=== PATIENT | male | born 1940 | race Caucasian/White ===

== ENCOUNTER 2016-05-06 12:15 | Inpatient (IN) | payer OTHER ==
[2016-05-06] VITALS (11 sets, daily range): BP systolic 86–128; BP diastolic 48–87
[~2016-05-06] VITALS: Ht 180.3 cm; Wt 96.0 kg
[~2016-05-06 12:15] MED LIST: ADULT LOW DOSE81 M1 PO; ADULT LOW STREN81 M2 PO; ALPRAZOLAM ER1 MG PO; ALPRAZOLAM1 MG PO; AMARYL4 MG PO; ASPIRIN81 M1 PO; BUSPAR10 MG PO; BUSPAR15 MG PO; BUSPIRONE HCL15 MG PO; Buspar PO; COLACE100 MG PO; Citrate Of Magnesia PO; Colace PO; DUONEB 2.5-0.5 M3 ML AEROSOL; FUROSEMIDE20 MG PO; GABAPENTIN100 MG PO; GLIMEPIRIDE4 MG PO; GLUCOPHAGE1000 MG PO; Glucophage PO; K-Dur PO; K-TAB10 MEQ PO; KLONOPIN1 MG PO; KLOR-CON M2020 MEQ PO; LASIX20 MG PO; LASIX40 MG PO; LEVOFLOXACIN750 MG PO; LO-DOSE ASPIRIN81 M1 PO; LOPRESSOR50 MG PO; Lasix PO; Lopressor PO; Lovenox SC; METFORMIN HCL1000 M1 PO; METFORMIN HCL500 MG PO; METOPROLOL SUCC50 MG PO; METOPROLOL TART25 MG PO; METOPROLOL TART50 MG PO; MIRALAX255 GM PO; Maalox, Mylanta PO; Milk Of Magnesia,MOM PO; Miralax, Glycolax PO; NEURONTIN100 MG PO; NIFEDIPINE ER30 M1 PO; NIFEDIPINE ER30 MG PO; NOVOLOG PE100 UNITS/ SC; Neurontin PO; PERCOCET 5/31 TABLET PO; POTASSIUM CHLO10 ME3 PO; POTASSIUM CHLO10 ME4 PO; Percocet 5/325,Endoc PO; Procardia XL,Adalat PO; ROBITUSSIN100 MG/5 M PO; SENNA PLUS TAB1 EACH PO; SEROQUEL50 MG PO; SIMVASTATIN10 MG PO; SIMVASTATIN20 MG PO; Senokot S,Pericolace PO; TAMSULOSIN HCL0.4 MG PO; THERAGRAN1 TABLET PO; TRAZODONE HCL50 MG PO; TYLENOL REGULA325 MG PO; Tylenol Regular Stre PO; VENLAFAXINE H37.5 M2 PO; WELLBUTRIN75 MG PO; XANAX1 MG PO; Xanax PO; ZOCOR20 MG PO; ZYPREXA5 MG PO; Zocor PO
[2016-05-06 12:36] LABS: EOSINOPHIL (%) 1.2 % (0-5); EOSINOPHIL COUNT 0.1 K/uL (0-0.3); HEMATOCRIT 36.4 % (38.0-50.0); IMMATURE GRANULOCYTE (%) 2.3 % (0.0-0.7); IMMATURE GRANULOCYTE COUNT 0.3 K/uL; MCH 29.9 PG (29.0-34.0); MCHC 30.8 G/DL (30.0-36.0); MCV 97.3 FL (86-99); MEAN PLAT.VOLUME 10.3 uM^3 (9.0-12.4); MONOCYTE (%) 4.6 % (3-12); MONOCYTE COUNT 0.5 K/uL (0-0.8); NEUTROPHIL (%) 64.2 % (45-76); PLATELET COUNT 218 K/uL (156-360); RBC DIS.WIDTH-CV 14.8 % (11.8-14.6); RBC DIS.WIDTH-SD 53.3 % (39-53); RED BLOOD COUNT 3.74 M/uL (4.00-5.50); WHITE BLOOD COUNT 10.9 K/uL (4.1-10.2)
[2016-05-06 12:46] LABS: INTER. NORMALIZED RATIO 1.1; PROTHROMBIN TIME 11.4 (9.2-11.2); PTT 32.5 (25-32)
[2016-05-06 12:47] LABS: CHLORIDE 104 mEq/L (99-109); SODIUM 138 mEq/L (136-147)
[2016-05-06 12:49] LABS: GLUCOSE 194 mg/dL (70-99)
[2016-05-06 12:50] LABS: ANION GAP 16 MEQ/L (2-14)
[2016-05-06 12:53] LABS: GFR ESTIMATE (CALCULATED) > 59 mL/min/; UREA NITROGEN (BUN) 23 mg/dL (9-23)
[2016-05-06 12:58] LABS: TROP-I INTERPRETATION NEGATIVE; TROPONIN-I < 0.01 ng/mL (0.0-0.30)
[2016-05-06 13:09] LABS: ADD MIUA? YES; BILIRUBIN NEGATIVE; BLOOD SMALL; COLOR STRAW ((YELLOW)); GLUCOSE (STRIP) 50; KETONES NEGATIVE; LEUKOCYTES SMALL; NITRITE NEGATIVE; PROTEIN (STRIP) 30; SPECIFIC GRAVITY 1.006 (1.000-1.030); UROBILINOGEN 0.2 MG/DL (0.2-1.0)
[2016-05-06 13:17] LABS: BASE EXCESS -0.6 mEq/L (-3 to +3); BICARBONATE 22.8 mEq/L (22-26); CARBOXY HGB 1.3 % (0-5); METHEMOGLOBIN 1.7 % (0-1.5); PCO2 32 mm Hg (35-45); PO2 134 mm Hg (80-100); pH 7.46 (7.35-7.45)
[2016-05-06 13:18] LABS: COMMENTS - BLOOD GASES A+C+; DEVICE VENT; FI02 100 %; MECHANICAL RATE 16 resp/min; MODE AC; PEEP 12 CM/H20; SITE LR; TIDAL VOLUME 500 ML; TOTAL RESP RATE 16 resp/min
[2016-05-06 13:38] LABS: INFLUENZA A VIRAL ANTIGEN NEGATIVE; INFLUENZA B VIRAL ANTIGEN NEGATIVE
[2016-05-06 13:41] LABS: BACTERIA NONE SEEN /HPF; EPITHELIAL CELLS RARE /HPF; GRANULAR CASTS 0-5 /LPF; HYALINE CASTS 0-5 /LPF; MUCUS TRACE /LPF; RED BLOOD CELLS NONE SEEN /HPF (0-5); UCUL ADDED? NO; WHITE BLOOD CELLS NONE SEEN /HPF (0-5)
[2016-05-06 15:04] LABS: CHLORIDE 104 mEq/L (99-109); SODIUM 138 mEq/L (136-147)
[2016-05-06 15:07] LABS: GLUCOSE 193 mg/dL (70-99)
[2016-05-06 15:08] LABS: ANION GAP 16 MEQ/L (2-14)
[2016-05-06 15:09] LABS: TOTAL BILIRUBIN 0.4 mg/dL (0.0-1.0)
[2016-05-06 15:10] LABS: ALKALINE PHOSPHATASE 73 IU/L (3-129); GFR ESTIMATE (CALCULATED) > 59 mL/min/
[2016-05-06 15:11] LABS: UREA NITROGEN (BUN) 24 mg/dL (9-23)
[2016-05-06] MEDS ORDERED: LASIX20 MG PO (15:25)
[2016-05-06] MEDS ORDERED: JANUVIA25 M1 PO (15:25)
[2016-05-06] MEDS ORDERED: FLONASE16 G1 BOTH NARES (15:25)
[2016-05-06] MEDS ORDERED: METOPROLOL SUCC25 MG PO (15:26)
[2016-05-06] MEDS ORDERED: ROCEPHIN1000 MG IM (15:27)
[2016-05-06] MEDS ORDERED: TYLENOL REGULA325 MG PO (15:28)
[2016-05-06] MEDS ORDERED: WELLBUTRIN XL150 MG PO (15:29)
[2016-05-06] MEDS ORDERED: MUCINEX600 MG PO (15:29)
[2016-05-06] MEDS ORDERED: TAMIFLU75 MG PO (15:30)
[2016-05-06] MEDS ORDERED: SENNA PLUS TAB1 EACH PO (15:30)
[2016-05-06] MEDS ORDERED: BUSPAR10 MG PO (15:31)
[2016-05-06] MEDS ORDERED: GENTAMICIN SULFA5 ML LEFT EYE (15:32)
[2016-05-06] MEDS ORDERED: ARTIFICIAL TEAR15 M1 BOTH EYES (15:34)
[2016-05-06] MEDS ORDERED: LORATADINE10 M2 PO (15:35)
[2016-05-06 17:10] LABS: METH RESISTANT S AUREUS PCR POSITIVE (NEGATIVE)
[2016-05-06 17:11] LABS: PROBE CHECK PASS
[2016-05-06 20:22] LABS: BASE EXCESS -2.2 mEq/L (-3 to +3); BICARBONATE 22.4 mEq/L (22-26); CARBOXY HGB 1.3 % (0-5); METHEMOGLOBIN 1.5 % (0-1.5); PCO2 37 mm Hg (35-45); PO2 208 mm Hg (80-100); SITE RR; pH 7.39 (7.35-7.45)
[2016-05-06 20:23] LABS: COMMENTS - BLOOD GASES C+A+; DEVICE VENTILATOR; FI02 80 %; MECHANICAL RATE 16 resp/min; MODE A/C; PEEP 8 CM/H20; TIDAL VOLUME 500 ML; TOTAL RESP RATE 16 resp/min
[2016-05-06 20:56] LABS: EOSINOPHIL (%) 0.1 % (0-5); HEMATOCRIT 37.2 % (38.0-50.0); IMMATURE GRANULOCYTE (%) 0.8 % (0.0-0.7); IMMATURE GRANULOCYTE COUNT 0.1 K/uL; INSTRUMENT ABS NEUTROPHIL CT 10.7 K/uL; LYMPHOCYTE COUNT 0.7 K/uL (1.0-2.8); MCH 30.5 PG (29.0-34.0); MCHC 31.5 G/DL (30.0-36.0); MCV 97.1 FL (86-99); MEAN PLAT.VOLUME 9.3 uM^3 (9.0-12.4); MONOCYTE COUNT 0.5 K/uL (0-0.8); NEUTROPHIL (%) 89.6 % (45-76); NEUTROPHIL COUNT 10.7 K/uL (1.8-6.4); PLATELET COUNT 230 K/uL (156-360); RBC DIS.WIDTH-CV 14.6 % (11.8-14.6); RBC DIS.WIDTH-SD 52.9 % (39-53); RED BLOOD COUNT 3.83 M/uL (4.00-5.50); WHITE BLOOD COUNT 11.9 K/uL (4.1-10.2)
[2016-05-06 21:07] LABS: INTER. NORMALIZED RATIO 1.2; PTT 33.1 (25-32)
[2016-05-06 21:09] LABS: CHLORIDE 105 mEq/L (99-109); POTASSIUM 4.4 mEq/L (3.7-5.4); SODIUM 139 mEq/L (136-147)
[2016-05-06 21:10] LABS: MAGNESIUM 1.5 mg/dL (1.3-2.7)
[2016-05-06 21:11] LABS: GLUCOSE 154 mg/dL (70-99)
[2016-05-06 21:12] LABS: ANION GAP 16 MEQ/L (2-14)
[2016-05-06 21:15] LABS: GFR ESTIMATE (CALCULATED) > 59 mL/min/
[2016-05-06 21:16] LABS: UREA NITROGEN (BUN) 25 mg/dL (9-23)
[2016-05-06 21:20] LABS: TROP-I INTERPRETATION NEGATIVE; TROPONIN-I 0.11 ng/mL (0.0-0.30)
[2016-05-07] VITALS: BP 93/54
[2016-05-07 02:35] LABS: EOSINOPHIL (%) 0 % (0-5); HEMATOCRIT 31.1 % (38.0-50.0); IMMATURE GRANULOCYTE (%) 0.8 % (0.0-0.7); IMMATURE GRANULOCYTE COUNT 0.1 K/uL; INSTRUMENT ABS NEUTROPHIL CT 7.5 K/uL; LYMPHOCYTE COUNT 0.8 K/uL (1.0-2.8); MCHC 31.8 G/DL (30.0-36.0); MCV 94.2 FL (86-99); MEAN PLAT.VOLUME 9.4 uM^3 (9.0-12.4); MONOCYTE (%) 4.2 % (3-12); MONOCYTE COUNT 0.4 K/uL (0-0.8); NEUTROPHIL (%) 85.3 % (45-76); NEUTROPHIL COUNT 7.5 K/uL (1.8-6.4); PLATELET COUNT 217 K/uL (156-360); RBC DIS.WIDTH-CV 14.5 % (11.8-14.6); RBC DIS.WIDTH-SD 51.1 % (39-53); WHITE BLOOD COUNT 8.8 K/uL (4.1-10.2)
[2016-05-07 02:46] LABS: CHLORIDE 108 mEq/L (99-109); SODIUM 139 mEq/L (136-147)
[2016-05-07 02:47] LABS: MAGNESIUM 1.4 mg/dL (1.3-2.7)
[2016-05-07 02:48] LABS: POTASSIUM 3.5 mEq/L (3.7-5.4)
[2016-05-07 02:49] LABS: GLUCOSE 137 mg/dL (70-99)
[2016-05-07 02:50] LABS: ANION GAP 17 MEQ/L (2-14)
[2016-05-07 02:51] LABS: INTER. NORMALIZED RATIO 1.2; PROTHROMBIN TIME 11.9 (9.2-11.2)
[2016-05-07 02:52] LABS: GFR ESTIMATE (CALCULATED) > 59 mL/min/
[2016-05-07 02:53] LABS: UREA NITROGEN (BUN) 26 mg/dL (9-23)
[2016-05-07 02:58] LABS: TROP-I INTERPRETATION NEGATIVE; TROPONIN-I 0.06 ng/mL (0.0-0.30)
[2016-05-07 03:28] LABS: CARBOXY HGB 1.2 % (0-5); METHEMOGLOBIN 1.7 % (0-1.5); pH 7.45 (7.35-7.45)
[2016-05-07 03:29] LABS: BICARBONATE 16.7 mEq/L (22-26); COMMENTS - BLOOD GASES C+; DEVICE VENTILATOR; FI02 50 %; MECHANICAL RATE 16 resp/min; MODE A/C; PCO2 24 mm Hg (35-45); PEEP 8 CM/H20; PO2 115 mm Hg (80-100); TIDAL VOLUME 500 ML; TOTAL RESP RATE 16 resp/min
[2016-05-07 08:00] VITALS: BP 104/45
[2016-05-07 09:00] LABS: EOSINOPHIL (%) 0 % (0-5); HEMATOCRIT 30.8 % (38.0-50.0); IMMATURE GRANULOCYTE (%) 0.7 % (0.0-0.7); IMMATURE GRANULOCYTE COUNT 0.1 K/uL; INSTRUMENT ABS NEUTROPHIL CT 7.7 K/uL; LYMPHOCYTE COUNT 1.1 K/uL (1.0-2.8); MCH 29.9 PG (29.0-34.0); MCHC 32.1 G/DL (30.0-36.0); MCV 93.1 FL (86-99); MEAN PLAT.VOLUME 9.5 uM^3 (9.0-12.4); MONOCYTE (%) 3.9 % (3-12); MONOCYTE COUNT 0.4 K/uL (0-0.8); NEUTROPHIL (%) 83.5 % (45-76); NEUTROPHIL COUNT 7.7 K/uL (1.8-6.4); PLATELET COUNT 253 K/uL (156-360); RBC DIS.WIDTH-CV 14.6 % (11.8-14.6); RBC DIS.WIDTH-SD 50.2 % (39-53); RED BLOOD COUNT 3.31 M/uL (4.00-5.50); WHITE BLOOD COUNT 9.2 K/uL (4.1-10.2)
[2016-05-07 09:16] LABS: BASE EXCESS -4.3 mEq/L (-3 to +3); COMMENTS - BLOOD GASES C+; METHEMOGLOBIN 1.8 % (0-1.5); PCO2 33 mm Hg (35-45); PO2 114 mm Hg (80-100); SITE ALINE; pH 7.39 (7.35-7.45)
[2016-05-07 09:17] LABS: DEVICE 980; FI02 40 %; MECHANICAL RATE 16 resp/min; MODE A/C; PEEP 8 CM/H20; TIDAL VOLUME 500 ML; TOTAL RESP RATE 16 resp/min
[2016-05-07 09:25] LABS: INTER. NORMALIZED RATIO 1.2; PROTHROMBIN TIME 11.9 (9.2-11.2); PTT 32.4 (25-32)
[2016-05-07 09:27] LABS: TROP-I INTERPRETATION NEGATIVE; TROPONIN-I 0.05 ng/mL (0.0-0.30)
[2016-05-07 09:31] LABS: ANION GAP 12 MEQ/L (2-14); CHLORIDE 108 MEQ/L (99-109); GFR ESTIMATE (CALCULATED) > 59 mL/min/; GLUCOSE 147 mg/dL (70-99); MAGNESIUM 1.6 mg/dl (1.3-2.7); POTASSIUM 3.5 MEQ/L (3.7-5.4); SAMPLE HEMOLYSIS CHECK 0; SAMPLE ICTERIC CHECK 0; SAMPLE LIPEMIA CHECK 0; SODIUM 140 MEQ/L (136-147); UREA NITROGEN (BUN) 26 mg/dL (9-23)
[2016-05-07 15:09] LABS: EOSINOPHIL (%) 0.3 % (0-5); HEMATOCRIT 29.2 % (38.0-50.0); IMMATURE GRANULOCYTE (%) 0.6 % (0.0-0.7); IMMATURE GRANULOCYTE COUNT 0.1 K/uL; INSTRUMENT ABS NEUTROPHIL CT 7.3 K/uL; LYMPHOCYTE COUNT 1.1 K/uL (1.0-2.8); MCH 29.9 PG (29.0-34.0); MCHC 32.2 G/DL (30.0-36.0); MEAN PLAT.VOLUME 9.5 uM^3 (9.0-12.4); MONOCYTE (%) 3.7 % (3-12); MONOCYTE COUNT 0.3 K/uL (0-0.8); NEUTROPHIL (%) 82.9 % (45-76); NEUTROPHIL COUNT 7.3 K/uL (1.8-6.4); PLATELET COUNT 230 K/uL (156-360); RBC DIS.WIDTH-CV 14.6 % (11.8-14.6); RBC DIS.WIDTH-SD 50.3 % (39-53); RED BLOOD COUNT 3.14 M/uL (4.00-5.50); WHITE BLOOD COUNT 8.7 K/uL (4.1-10.2)
[2016-05-07 15:27] LABS: INTER. NORMALIZED RATIO 1.2; PROTHROMBIN TIME 11.8 (9.2-11.2)
[2016-05-07 15:28] LABS: TROP-I INTERPRETATION NEGATIVE; TROPONIN-I 0.03 ng/mL (0.0-0.30)
[2016-05-07 15:30] LABS: ANION GAP 14 MEQ/L (2-14); CHLORIDE 108 MEQ/L (99-109); GFR ESTIMATE (CALCULATED) > 59 mL/min/; GLUCOSE 170 mg/dL (70-99); MAGNESIUM 1.6 mg/dl (1.3-2.7); POTASSIUM 3.4 MEQ/L (3.7-5.4); SAMPLE HEMOLYSIS CHECK 0; SAMPLE ICTERIC CHECK 0; SAMPLE LIPEMIA CHECK 0; SODIUM 141 MEQ/L (136-147); UREA NITROGEN (BUN) 26 mg/dL (9-23)
[2016-05-07 15:48] LABS: BASE EXCESS -2.5 mEq/L (-3 to +3); BICARBONATE 20.4 mEq/L (22-26); CARBOXY HGB 1.5 % (0-5); COMMENTS - BLOOD GASES C+; DEVICE 980; FI02 40 %; MECHANICAL RATE 16 resp/min; METHEMOGLOBIN 1.4 % (0-1.5); MODE A/C; PCO2 28 mm Hg (35-45); PO2 88 mm Hg (80-100); SITE ALINE; TOTAL RESP RATE 16 resp/min; pH 7.47 (7.35-7.45)
[2016-05-07 15:49] LABS: PEEP 8 CM/H20; TIDAL VOLUME 500 ML
[2016-05-07 17:00] VITALS: BP 83/46
[2016-05-07 19:00] VITALS: BP 83/46
[2016-05-07 20:52] LABS: EOSINOPHIL (%) 0.2 % (0-5); HEMATOCRIT 29.4 % (38.0-50.0); IMMATURE GRANULOCYTE (%) 0.7 % (0.0-0.7); IMMATURE GRANULOCYTE COUNT 0.1 K/uL; INSTRUMENT ABS NEUTROPHIL CT 8.2 K/uL; LYMPHOCYTE COUNT 1.2 K/uL (1.0-2.8); MCH 30.3 PG (29.0-34.0); MCHC 32.7 G/DL (30.0-36.0); MCV 92.7 FL (86-99); MEAN PLAT.VOLUME 9.6 uM^3 (9.0-12.4); MONOCYTE (%) 3.6 % (3-12); MONOCYTE COUNT 0.4 K/uL (0-0.8); NEUTROPHIL (%) 83.2 % (45-76); NEUTROPHIL COUNT 8.2 K/uL (1.8-6.4); PLATELET COUNT 248 K/uL (156-360); RBC DIS.WIDTH-CV 14.6 % (11.8-14.6); RBC DIS.WIDTH-SD 49.1 % (39-53); RED BLOOD COUNT 3.17 M/uL (4.00-5.50); WHITE BLOOD COUNT 9.8 K/uL (4.1-10.2)
[2016-05-07 21:00] VITALS: BP 119/69
[2016-05-07 21:09] LABS: BASE EXCESS -3.8 mEq/L (-3 to +3); BICARBONATE 20.6 mEq/L (22-26); CARBOXY HGB 1.2 % (0-5); METHEMOGLOBIN 1.5 % (0-1.5); PCO2 34 mm Hg (35-45); pH 7.39 (7.35-7.45)
[2016-05-07 21:10] LABS: COMMENTS - BLOOD GASES C+; DEVICE VENTILATOR; FI02 40 %; MECHANICAL RATE 16 resp/min; MODE A/C; PEEP 8 CM/H20; PO2 122 mm Hg (80-100); TIDAL VOLUME 500 ML; TOTAL RESP RATE 16 resp/min
[2016-05-07 21:11] LABS: INTER. NORMALIZED RATIO 1.1; PROTHROMBIN TIME 11.5 (9.2-11.2); PTT 32.1 (25-32)
[2016-05-07 21:13] LABS: TROP-I INTERPRETATION NEGATIVE; TROPONIN-I 0.02 ng/mL (0.0-0.30)
[2016-05-07 21:16] LABS: ANION GAP 15 MEQ/L (2-14); CHLORIDE 108 MEQ/L (99-109); GFR ESTIMATE (CALCULATED) > 59 mL/min/; GLUCOSE 158 mg/dL (70-99); MAGNESIUM 1.6 mg/dl (1.3-2.7); POTASSIUM 3.3 MEQ/L (3.7-5.4); SAMPLE HEMOLYSIS CHECK 0; SAMPLE ICTERIC CHECK 0; SAMPLE LIPEMIA CHECK 0; SODIUM 141 MEQ/L (136-147); UREA NITROGEN (BUN) 27 mg/dL (9-23)
[2016-05-08] VITALS: BP 113/69
[2016-05-08 03:12] LABS: BASE EXCESS -3.3 mEq/L (-3 to +3); BICARBONATE 21.2 mEq/L (22-26); CARBOXY HGB 1.4 % (0-5); COMMENTS - BLOOD GASES C+; DEVICE VENTILATOR; FI02 40 %; MECHANICAL RATE 16 resp/min; METHEMOGLOBIN 1.7 % (0-1.5); MODE A/C; PCO2 35 mm Hg (35-45); PEEP 8 CM/H20; PO2 82 mm Hg (80-100); SITE RR ALINE; TIDAL VOLUME 500 ML; TOTAL RESP RATE 16 resp/min; pH 7.39 (7.35-7.45)
[2016-05-08 03:36] LABS: EOSINOPHIL (%) 0.5 % (0-5); HEMATOCRIT 30.8 % (38.0-50.0); IMMATURE GRANULOCYTE (%) 0.6 % (0.0-0.7); IMMATURE GRANULOCYTE COUNT 0.1 K/uL; INSTRUMENT ABS NEUTROPHIL CT 7.1 K/uL; LYMPHOCYTE COUNT 1.1 K/uL (1.0-2.8); MCH 30.2 PG (29.0-34.0); MCHC 32.8 G/DL (30.0-36.0); MCV 92.2 FL (86-99); MEAN PLAT.VOLUME 9.3 uM^3 (9.0-12.4); MONOCYTE (%) 2.2 % (3-12); MONOCYTE COUNT 0.2 K/uL (0-0.8); NEUTROPHIL (%) 83.5 % (45-76); NEUTROPHIL COUNT 7.1 K/uL (1.8-6.4); PLATELET COUNT 253 K/uL (156-360); RBC DIS.WIDTH-CV 14.5 % (11.8-14.6); RED BLOOD COUNT 3.34 M/uL (4.00-5.50); WHITE BLOOD COUNT 8.5 K/uL (4.1-10.2)
[2016-05-08 03:43] LABS: CHLORIDE 109 mEq/L (99-109); POTASSIUM 3.4 mEq/L (3.7-5.4); SODIUM 140 mEq/L (136-147)
[2016-05-08 03:44] LABS: MAGNESIUM 1.5 mg/dL (1.3-2.7)
[2016-05-08 03:47] LABS: ANION GAP 15 MEQ/L (2-14)
[2016-05-08 03:49] LABS: GFR ESTIMATE (CALCULATED) > 59 mL/min/
[2016-05-08 03:50] LABS: UREA NITROGEN (BUN) 27 mg/dL (9-23)
[2016-05-08 03:51] LABS: INTER. NORMALIZED RATIO 1.1; PROTHROMBIN TIME 11.6 (9.2-11.2); PTT 37.6 (25-32)
[2016-05-08 03:54] LABS: TROP-I INTERPRETATION NEGATIVE; TROPONIN-I 0.02 ng/mL (0.0-0.30)
[2016-05-08 03:57] LABS: GLUCOSE 93 mg/dL (70-99)
[2016-05-08 08:59] LABS: EOSINOPHIL (%) 0.4 % (0-5); HEMATOCRIT 30.4 % (38.0-50.0); IMMATURE GRANULOCYTE (%) 0.5 % (0.0-0.7); IMMATURE GRANULOCYTE COUNT 0.1 K/uL; INSTRUMENT ABS NEUTROPHIL CT 8.4 K/uL; LYMPHOCYTE COUNT 0.8 K/uL (1.0-2.8); MCH 29.8 PG (29.0-34.0); MCHC 32.2 G/DL (30.0-36.0); MCV 92.4 FL (86-99); MEAN PLAT.VOLUME 9.6 uM^3 (9.0-12.4); MONOCYTE (%) 2.8 % (3-12); MONOCYTE COUNT 0.3 K/uL (0-0.8); NEUTROPHIL (%) 87.6 % (45-76); NEUTROPHIL COUNT 8.4 K/uL (1.8-6.4); PLATELET COUNT 260 K/uL (156-360); RBC DIS.WIDTH-CV 14.6 % (11.8-14.6); RED BLOOD COUNT 3.29 M/uL (4.00-5.50); WHITE BLOOD COUNT 9.6 K/uL (4.1-10.2)
[2016-05-08 09:18] LABS: TROP-I INTERPRETATION NEGATIVE; TROPONIN-I 0.03 ng/mL (0.0-0.30)
[2016-05-08 09:22] LABS: INTER. NORMALIZED RATIO 1.2; PROTHROMBIN TIME 11.8 (9.2-11.2); PTT 32.9 (25-32)
[2016-05-08 09:35] LABS: ANION GAP 15 MEQ/L (2-14); CHLORIDE 109 MEQ/L (99-109); GFR ESTIMATE (CALCULATED) > 59 mL/min/; GLUCOSE 66 mg/dL (70-99); MAGNESIUM 1.7 mg/dl (1.3-2.7); POTASSIUM 3.5 MEQ/L (3.7-5.4); SAMPLE HEMOLYSIS CHECK 0; SAMPLE ICTERIC CHECK 0; SAMPLE LIPEMIA CHECK 0; SODIUM 143 MEQ/L (136-147); UREA NITROGEN (BUN) 27 mg/dL (9-23)
[2016-05-08 11:02] LABS: BASE EXCESS -5.4 mEq/L (-3 to +3); BICARBONATE 18.9 mEq/L (22-26); CARBOXY HGB 1.5 % (0-5); METHEMOGLOBIN 1.5 % (0-1.5); PCO2 32 mm Hg (35-45); PO2 77 mm Hg (80-100); pH 7.38 (7.35-7.45)
[2016-05-08 11:03] LABS: COMMENTS - BLOOD GASES C+; DEVICE VENT; FI02 30 %; MECHANICAL RATE 16 resp/min; MODE AC; PEEP 8 CM/H20; SITE RR ALINE; TIDAL VOLUME 500 ML; TOTAL RESP RATE 20 resp/min
[2016-05-08 12:00] VITALS: BP 88/52
== END 2016-05-08 15:20 | DRG 252 ==
LOC: EME 12:15 → EDOF 13:44 → 4WEST 13:44
PROVIDERS: Anesthesiology; Emergency Medicine; Internal Medicine Critical Care Medicine
PROC: 0BH17EZ Insertion of Endotracheal Airway into Trachea, Via Natural or Artificial Opening (ICD-10-PCS; principal; 2016-05-06)
PROC: 5A1945Z Respiratory Ventilation, 24-96 Consecutive Hours (ICD-10-PCS; principal; 2016-05-06)
PROC: 05HY33Z Insertion of Infusion Device into Upper Vein, Percutaneous Approach (ICD-10-PCS; 2016-05-07)
PROC: 03H Upper Arteries, Insertion (ICD-10-PCS; 2016-05-07)
DX: I46.9 Cardiac arrest, cause unspecified (principal); J18.9 Pneumonia, unspecified organism; J96.01 Acute respiratory failure with hypoxia; J90 Pleural effusion, not elsewhere classified; G93.1 Anoxic brain damage, not elsewhere classified; I50.9 Heart failure, unspecified; F41.9 Anxiety disorder, unspecified; F03.90 Unspecified dementia, unspecified severity, without behavioral disturbance, psychotic disturbance, mood disturbance, and anxiety; N40.0 Benign prostatic hyperplasia without lower urinary tract symptoms; N18.3 Chronic kidney disease, stage 3 (moderate); F32.9 Major depressive disorder, single episode, unspecified; B95.62 Methicillin resistant Staphylococcus aureus infection as the cause of diseases classified elsewhere; I13.0 Hypertensive heart and chronic kidney disease with heart failure and stage 1 through stage 4 chronic kidney disease, or unspecified chronic kidney disease; J98.11 Atelectasis; E11.9 Type 2 diabetes mellitus without complications; Z96.641 Presence of right artificial hip joint; Z74.01 Bed confinement status; G40.89 Other seizures
CPT/HCPCS: 36600; 70450; 71010; 80048; 80048 91; 80053; 81003; 82330; 82803; 83605; 83735; 83880; 84100; 84484; 85025; 85025 91; 85610; 85730; 87040; 87070; 87077; 87186; 87205; 87502; 87641; 87801; 93005; 94002; 94003; 94640; 95819; 99281; 99285; J0171; J0692; J1953; J1956; J2060; J2250; J2270; J2704; J3370; J7030; J7050